=== PATIENT | female | born 1970 | race African-American/Black ===

== ENCOUNTER 2018-06-12 11:45 | Emergency (ER) | payer MEDICAID, OTHER ==
[~2018-06-12] VITALS: Ht 149.9 cm; Wt 45.0 kg
[2018-06-12 11:58] VITALS: BP 124/66
== END 2018-06-12 13:20 | disposition home or self-care (01) ==
LOC: ER 13:10
DX: H57.89 Other specified disorders of eye and adnexa (principal); K21.9 Gastro-esophageal reflux disease without esophagitis; F78 Other intellectual disabilities
CPT/HCPCS: 99281